=== PATIENT | female | born 1980 | race Caucasian/White ===

== ENCOUNTER 2018-09-02 09:02 | Day surgery (SDC) | payer BC ==
[2018-09-02 11:04] LABS: POTASSIUM 5.8 mmol/L (3.5-5.1)
[2018-09-02] MEDS ORDERED: HEPARIN 1000 UNITS/NS (A-LINE) 1,000 ML (11:35)
[2018-09-02] MEDS ORDERED: IODIXANOL LOCM 100 ML BTL (11:35)
[2018-09-02] MEDS ORDERED: LIDOCAINE 1% (MDV) 20 ML INJ (11:35)
[2018-09-02] MEDS ORDERED: MIDAZOLAM 1 MG/ML 2 ML INJ (11:37)
[2018-09-02] MEDS ORDERED: FENTAnyl 50 MCG/ML VIAL (11:37)
== END 2018-09-02 15:25 | disposition home or self-care (01) ==
LOC: CCL 09:02 → SDS 09:02 → CCL 15:25
DX: I12.0 Hypertensive chronic kidney disease with stage 5 chronic kidney disease or end stage renal disease (principal); N18.6 End stage renal disease
CPT/HCPCS: 36901; 84132; 84703